=== PATIENT | male | born 1970 | race American Indian/Alaskan Native ===

== ENCOUNTER 2018-04-24 08:06 | Outpatient (CLI) | payer OTHER ==
--- NOTE | 2018-04-24 10:54 | Ultrasound Report ---
ULTRASOUND RENAL BILATERAL HISTORY: Chronic kidney disease, stage I. TECHNIQUE: transabdominal ultrasound with color Doppler interrogation. COMPARISON: none. FINDINGS: The right kidney measures 11.2 x 5.3 x 5.0cm. Right renal cortex: 1.5cm. The left kidney measures 11.4 x 5.8 x 6.2cm. Left renal cortex: 1.3cm. The kidneys are normal size, contour and position. There is increased renal cortical echotexture bilaterally consistent with nonspecific renal parenchymal disease. Corticomedullary differentiation is preserved. No evidence for cystic disease, mass, nephrolithiasis, hydronephrosis or perinephric fluid. The views of the bladder and the region of the ureters appear normal. IMPRESSION: Renal parenchymal disease.
== END 2018-04-24 08:07 | disposition home or self-care (01) ==
LOC: US 08:06
PROVIDERS: ATTEND Internal Medicine Nephrology
DX: N18.1 Chronic kidney disease, stage 1 (principal)
CPT/HCPCS: 76770